=== PATIENT | female | born 1975 | race Caucasian/White ===

== ENCOUNTER → 2017-04-18 | Outpatient (CLI) | payer OTHER | LOC: BMCIMAGING 13:53 | PROVIDERS: ATTEND Family Medicine | DX: R10.11 Right upper quadrant pain (principal); R93.2 Abnormal findings on diagnostic imaging of liver and biliary tract ==

== ENCOUNTER → 2017-06-09 | Outpatient (CLI) | payer OTHER | LOC: FIMAGING 15:14 | PROVIDERS: ATTEND Surgery | DX: K83.8 Other specified diseases of biliary tract (principal) ==

== ENCOUNTER 2017-09-25 17:10 | Emergency (ER) | payer OTHER ==
--- NOTE | 2017-09-25 17:17 | EDPHY ---
H & P Time Seen by Provider: 09/25/17 17:15 HPI/ROS: CHIEF COMPLAINT: Abdominal pain and vomiting HISTORY OF PRESENT ILLNESS: The patient had ERCP today [facility] by Dr. López. This was performed for about a month history of abdominal pain. This procedure was at 7:30 a.m. at [facility]. Around noon she started getting worsening abdominal pain in her epigastrium radiating to her back associated with multiple episodes of nausea and vomiting worsens tries to eat anything. Symptoms severe. REVIEW OF SYSTEMS: Eye: no change in vision ENT: no sore throat Cardiac: no chest pain or syncope Pulmonary: no cough or SOB Abdomen: See HPI Musculoskeletal: no back pain Skin: no rash Neuro: no headache Constitutional: no fever : no urinary symptoms A comprehensive 10 point review of systems is otherwise negative aside from elements mentioned in the history of present illness. PAST MEDICAL HISTORY: Depression and anxiety Social history: Patient is here with her boyfriend and the boyfriend's sister. General Appearance: Alert and conversant, cooperative. Eyes: No scleral icterus. ENT, Mouth: Dry mucous membranes. Respiratory: Normal respiratory effort, breath sounds equal, lungs are clear to auscultation. Cardiovascular: Regular rate and rhythm. Gastrointestinal: Epigastric abdominal tenderness without rebound or guarding. Neurological: Alert and oriented x3. Normally conversant. Face symmetric, normal movement and sensation in all extremities. Skin: Warm and dry, no rashes. Musculoskeletal: No peripheral edema and no joint swelling. Psychiatric: Not agitated. Emergency Department course/MDM: Dilaudid 0.5 mg IV and Zofran 4 mg IV, normal saline 2 L IV for clinical dehydration. Plan for lipase and CT abdomen pelvis with IV contrast to evaluate for pancreatitis or perforation. 192: CT no evidence of perforation or postoperative complication per Dr. Mendoza. 1945: Patient feels better, would like to go home. Results discussed. She thinks her headache is because she is a daily heavy caffeine and coffee drinker and did not have any today. At discharge her headache feels better after drinking some coffee. Constitutional: Initial Vital Signs Temperature (C) 36.7 C 09/25/17 17:23 Heart Rate 63 09/25/17 17:23 Respiratory Rate 18 09/25/17 17:23 Blood Pressure 132/70 H 09/25/17 17:23 O2 Sat (%) 95 09/25/17 17:23 O2 Delivery Mode Room Air Allergies/Adverse Reactions: No Known Allergies Allergy (Unverified 09/25/17 17:44) Medical Decision Making - Diagnostics Imaging Results: Imaging Impressions Abdomen CT 09/25/17 18:03 Impression: 1. Pneumobilia, air-fluid level in the distal duct, and contrast in the gallbladder are probably all within normal limits given recent ERCP. 2. No evidence for pancreatitis or inflammation otherwise. 3. Constipation. 4. No perforation. Findings and recommendations discussed with Dr. Alexis Franklin at 1920 hour, 2016. Final report concurs with initial preliminary interpretation. Differential Diagnosis: Differential considered including but not limited to pancreatitis, intestinal perforation, anesthetic reaction, bowel obstruction or hepatitis. - Data Points Laboratory Results: Laboratory Results 09/25/17 17:31 09/25/17 17:31 09/25/17 09/25/17 09/25/17 17:36 17:31 17:31 WBC RBC Hgb POC Hgb 12.9 gm/dL gm/dL (12.6-16.3) Hct POC Hct 38 % % (38-47) MCV MCH MCHC RDW Plt Count MPV Neut % (Auto) Lymph % (Auto) Webster % (Auto) Eos % (Auto) Baso % (Auto) Nucleat RBC Rel Count Absolute Neuts (auto) Absolute Lymphs (auto) Absolute Monos (auto) Absolute Eos (auto) Absolute Basos (auto) Absolute Nucleated RBC Immature Gran % Immature Gran # POC Sodium 136 mEq/L mEq/L (134-144) Sodium 133 mEq/L L mEq/L (134-144) POC Potassium 4.2 mEq/L mEq/L (3.3-5.0) Potassium 4.0 mEq/L mEq/L (3.5-5.2) POC Chloride 99 mEq/L mEq/L (97-110) Chloride 98 mEq/L mEq/L (97-110) Carbon Dioxide 24 mEq/l mEq/l (22-31) Anion Gap 11 mEq/L mEq/L (8-16) POC BUN 10 mg/dL mg/dL (7-23) BUN 10 mg/dL mg/dL (7-23) Creatinine 0.7 mg/dL mg/dL (0.6-1.0) POC Creatinine 0.7 mg/dL mg/dL (0.6-1.0) Estimated GFR > 60 Glucose 118 mg/dL H mg/dL (70-100) POC Glucose 122 mg/dL H mg/dL (70-100) Calcium 9.0 mg/dL mg/dL (8.5-10.4) Total Bilirubin 0.7 mg/dL mg/dL (0.1-1.4) Conjugated Bilirubin 0.2 mg/dL mg/dL (0.0-0.5) Unconjugated Bilirubin 0.5 mg/dL mg/dL (0.0-1.1) AST 50 IU/L H IU/L (14-46) ALT 59 IU/L H IU/L (9-52) Alkaline Phosphatase 47 IU/L IU/L (38-126) Total Protein 6.7 g/dL g/dL (6.3-8.2) Albumin 4.5 g/dL g/dL (3.5-5.0) Lipase 112 IU/L IU/L (23-300) Beta HCG, Qual NEGATIVE 09/25/17 17:31 WBC 6.83 10^3/uL 10^3/uL (3.80-9.50) RBC 4.12 10^6/uL L 10^6/uL (4.18-5.33) Hgb 12.5 g/dL L g/dL (12.6-16.3) POC Hgb Hct 35.3 % L % (38.0-47.0) POC Hct MCV 85.7 fL fL (81.5-99.8) MCH 30.3 pg pg (27.9-34.1) MCHC 35.4 g/dL g/dL (32.4-36.7) RDW 12.0 % % (11.5-15.2) Plt Count 210 10^3/uL 10^3/uL (150-400) MPV 10.4 fL fL (8.7-11.7) Neut % (Auto) 88.8 % H % (39.3-74.2) Lymph % (Auto) 8.5 % L % (15.0-45.0) Webster % (Auto) 2.2 % L % (4.5-13.0) Eos % (Auto) 0.1 % L % (0.6-7.6) Baso % (Auto) 0.1 % L % (0.3-1.7) Nucleat RBC Rel Count 0.0 % % (0.0-0.2) Absolute Neuts (auto) 6.06 10^3/uL 10^3/uL (1.70-6.50) Absolute Lymphs (auto) 0.58 10^3/uL L 10^3/uL (1.00-3.00) Absolute Monos (auto) 0.15 10^3/uL L 10^3/uL (0.30-0.80) Absolute Eos (auto) 0.01 10^3/uL L 10^3/uL (0.03-0.40) Absolute Basos (auto) 0.01 10^3/uL L 10^3/uL (0.02-0.10) Absolute Nucleated RBC 0.00 10^3/uL 10^3/uL (0-0.01) Immature Gran % 0.3 % % (0.0-1.1) Immature Gran # 0.02 10^3/uL 10^3/uL (0.00-0.10) POC Sodium Sodium POC Potassium Potassium POC Chloride Chloride Carbon Dioxide Anion Gap POC BUN BUN Creatinine POC Creatinine Estimated GFR Glucose POC Glucose Calcium Total Bilirubin Conjugated Bilirubin Unconjugated Bilirubin AST ALT Alkaline Phosphatase Total Protein Albumin Lipase Beta HCG, Qual Medications Given: Discontinued Medications Hydromorphone HCl (Dilaudid) 0.5 mg IVP EDNOW ONE Stop: 09/25/17 17:27 Last Admin: 09/25/17 17:46 Dose: 0.5 mg Hydromorphone HCl (Dilaudid) 0.5 mg IVP EDNOW ONE Stop: 09/25/17 18:39 Last Admin: 09/25/17 19:00 Dose: Not Given Sodium Chloride (Ns) 1,000 mls @ 0 mls/hr IV EDNOW ONE; Wide Open PRN Reason: Protocol Stop: 09/25/17 17:27 Last Admin: 09/25/17 17:38 Dose: 1,000 mls Sodium Chloride (Ns) 1,000 mls @ 0 mls/hr IV EDNOW ONE; Wide Open PRN Reason: Protocol Stop: 11/02/17 17:27 Last Admin: 09/25/17 17:46 Dose: Not Given Ondansetron HCl (Zofran) 4 mg IVP EDNOW ONE Stop: 09/25/17 17:27 Last Admin: 09/25/17 17:44 Dose: 4 mg Promethazine HCl (Phenergan) 6.25 mg IVP ONCE ONE Stop: 09/25/17 18:57 Last Admin: 09/25/17 18:59 Dose: 6.25 mg Promethazine HCl (Phenergan 25 Mg Prepack #4) 1 btl TAKEHOME EDNOW ONE Stop: 09/25/17 20:16 Last Admin: 09/25/17 20:19 Dose: 1 btl Point of Care Test Results: 09/25/17 17:36 POC Sodium 136 POC Potassium 4.2 POC Chloride 99 POC BUN 10 POC Creatinine 0.7 POC Glucose 122 H Departure - Departure Disposition: Home, Routine, Self-Care Clinical Impression: Abdominal pain Qualifiers: Abdominal location: epigastric Qualified Code(s): R10.13 - Epigastric pain Nausea & vomiting Qualifiers: Vomiting type: unspecified Vomiting Intractability: non-intractable Qualified Code(s): R11.2 - Nausea with vomiting, unspecified Condition: Good Instructions: Acute Nausea and Vomiting (ED), Abdominal Pain (ED) Referrals: EVANGELINA DEAN [Primary Care Provider] - As per Instructions
[2017-09-25] MEDS ORDERED: ONDANSETRON 4 MG/2 ML VIAL IVP ONE ×2 (17:26)
[2017-09-25] MEDS ORDERED: NS 1,000 ML IV ONE ×4 (17:26)
[2017-09-25] MEDS ORDERED: HYDROmorphONE/DILAUDID 1 MG/ML INJ IVP ONE ×4 (17:26→18:38)
[2017-09-25 17:41] LABS: PLATELET COUNT 210 10^3/uL (150-400)
[2017-09-25] MEDS ORDERED: IOPAMIDOL (ISOVUE-300) 100 ML BTL ONE ×2 (18:12)
[2017-09-25] MEDS ORDERED: PROMETHAZINE HCL 25 MG/ML INJ IVP ONE ×2 (18:56)
[2017-09-25] MEDS ORDERED: ONDANSETRON 4MG PREPACK#2 BTL TAKEHOME ONE ×2 (19:42)
[2017-09-25] MEDS ORDERED: PROMETHAZINE 25 MG PREPACK #4 BTL TAKEHOME ONE ×2 (20:15)
[2017-09-25 20:26] VITALS: BP 98/60; PULSE 64; RESP 18; TEMP 99.5; O2SAT 98
== END 2017-09-25 20:27 | disposition home or self-care (01) ==
DX: R10.13 Epigastric pain (principal); R11.2 Nausea with vomiting, unspecified; E86.9 Volume depletion, unspecified
CPT/HCPCS: 82947-QW; 96374; J1170; J2405; J2550; Q9967